=== PATIENT | female | born 1985 | race African-American/Black ===

== ENCOUNTER → 2022-09-15 | Outpatient (CLI) | payer OTHER ==
[~2022-09-15] MED LIST: NORCO 325 MG-51 TAB PO
== END ==
LOC: MC.RAD 10:00
DX: N60.12 Diffuse cystic mastopathy of left breast (principal); N60.11 Diffuse cystic mastopathy of right breast

== ENCOUNTER 2022-09-17 19:31 | Emergency (ER) | payer OTHER ==
[~2022-09-17] VITALS: Ht 165.1 cm; Wt 76.4 kg
[2022-09-17 19:51] VITALS: BP 102/53; TEMP 98.4
[2022-09-17] MEDS ORDERED: NORCO 325 MG-51 TAB PO (20:16)
[2022-09-17 21:05] VITALS: PULSE 72
== END 2022-09-17 21:05 | disposition home or self-care (01) ==
LOC: COL.ER 19:31
DX: N60.01 Solitary cyst of right breast (principal)

== ENCOUNTER → 2022-09-20 | Outpatient (CLI) | payer OTHER | LOC: MC.RAD 07:00 | DX: N60.01 Solitary cyst of right breast (principal) ==

== ENCOUNTER → 2023-11-06 | Outpatient (CLI) | payer OTHER | LOC: MC.RAD 13:00 | DX: Z12.31 Encounter for screening mammogram for malignant neoplasm of breast (principal) ==